=== PATIENT | female | born 1970 | race African-American/Black ===

== ENCOUNTER 2018-01-20 06:16 | Emergency (ER) | payer OTHER ==
[~2018-01-20] VITALS: Ht 157.5 cm; Wt 61.2 kg
[2018-01-20 06:24] VITALS: BP 139/89
[2018-01-20] MEDS ORDERED: DIPHENHIST50 MG PO (06:31)
[2018-01-20] MEDS ORDERED: PEPCID40 MG PO (06:40)
[2018-01-20] MEDS ORDERED: PREDNISONE50 MG PO (06:40)
== END 2018-01-20 06:55 | disposition home or self-care (01) ==
LOC: ER 06:16
DX: S20.369A Insect bite (nonvenomous) of unspecified front wall of thorax, initial encounter (principal); S40.862A Insect bite (nonvenomous) of left upper arm, initial encounter; S40.861A Insect bite (nonvenomous) of right upper arm, initial encounter; S80.862A Insect bite (nonvenomous), left lower leg, initial encounter; L29.9 Pruritus, unspecified; Z91.018 Allergy to other foods; W57.XXXA Bitten or stung by nonvenomous insect and other nonvenomous arthropods, initial encounter; Y93.89 Activity, other specified; Y92.89 Other specified places as the place of occurrence of the external cause; Y99.8 Other external cause status

== ENCOUNTER → 2018-08-27 | Outpatient (CLI) | payer OTHER ==
[~2018-08-27] MED LIST: DIPHENHIST50 MG PO; PEPCID40 MG PO; PREDNISONE50 MG PO
== END ==
LOC: CAT 12:22
DX: R51 Headache (principal)

== ENCOUNTER → 2021-08-29 | Outpatient (CLI) | payer OTHER | LOC: BC 08:28 | PROVIDERS: ATTEND Nurse Practitioner | DX: Z12.31 Encounter for screening mammogram for malignant neoplasm of breast (principal); N64.59 Other signs and symptoms in breast ==